=== PATIENT | female | born 1960 | race Caucasian/White ===

== ENCOUNTER 2019-09-21 15:11 | Outpatient (CLI) | payer MEDICAID, SELFPAY ==
--- NOTE | 2019-09-21 15:17 | XR_ITS ---
WS: [id number] ANKLE RIGHT TECHNIQUE: 3 views of the right ankle CLINICAL INFORMATION: ACUTE RIGHT ANKLE PAIN COMPARISON: None. FINDINGS: Osteopenia. Soft tissue edema. Normal ankle mortise. No acute fractures. Small plantar calcaneal spur . XR/XR ankle RT min 3V* [id number] IMPRESSION: Soft tissue edema with osteopenia. No visualized fractures.
== END 2019-09-21 15:12 | disposition home or self-care (01) ==
LOC: RAD 15:14
PROVIDERS: Family Provider Family Medicine; PCP Family Medicine; Visit Provider Registered Nurse
DX: M25.571 Pain in right ankle and joints of right foot (principal); R60.0 Localized edema; M85.871 Other specified disorders of bone density and structure, right ankle and foot
CPT/HCPCS: 73610

== ENCOUNTER → 2019-11-03 09:44 | Outpatient (BNVA) | payer MEDICAID, SELFPAY | PROVIDERS: Family Provider Family Medicine; PCP Family Medicine; Visit Provider Internal Medicine | DX: R19.5 Other fecal abnormalities (principal) | CPT/HCPCS: 87635 ==

== ENCOUNTER 2019-11-07 06:56 | Day surgery (SDC) | payer MEDICAID, SELFPAY ==
[2019-11-03 13:44] VITALS: BMI 30.7
[2019-11-07 07:39] VITALS: BP 122/57; RESP 18; TEMP 36.1; O2SAT 98
[2019-11-07] MEDS: sodium chloride 0.9% 1,000 ML 30 ML IV (07:41)
--- NOTE | 2019-11-07 07:50 | P.ANESASSM_ITS ---
Pre-Anesthetic Assessment Pre-Anesthetic Assessment: Height/Weight: Height 1.61 m Weight 79.832 kg Temp Resp BP Pulse Ox 97 F L 18 122/57 98 11/07/19 07:39 11/07/19 07:39 11/07/19 07:39 11/07/19 07:39 Preop Diagnosis: Positive Cologuard Proposed Procedure: Operation Date: 11/07/19 08:30 Proposed Procedures p Colonoscopy 79631 R19.5(Not Applicable) - Mazin Vincent MD Familial anesthetic complications: NOne Was Beta Delmi taken within 24 hours: Yes Last intake: Intake Last Liquid Date 11/06/19 Last Liquid Time 20:00 Last Solid Date 11/05/19 Last Solid Time 17:00 Social: Social History: Tobacco and No alcohol Exam: Pre-Anes Outpt Exam: alert, oriented x 3 and regular rate & rhythm Additional Exam Findings (including area of procedure): coarse b/l breaths sound s Airway: Cervical ROM: WNL MP: 4 Dentition: Chipped Pulmonary: Pulmonary: COPD (did not take her breathing treatments this morning), Cough (dry chronic cough (years) - hasn't changed) and SOB Comments: no currently resp distress CV/HEM: CV/HEM: CAD and HTN GI: GI: GERD Metabolic: Metabolic: Hyperlipidemia Musc/skel: Musc/skel: Lower Back Pain and OA/DJD Anesthetic Plan: ASA status: 3 Anesthesia: MAC Risk of > 500 ml blood loss (7ml/kg in children): No Meds/Allergies Current Medications: Current Medications Generic Name Dose Route Start Last Admin Trade Name Freq PRN Reason Stop Dose Admin Sodium Chloride 1,000 mls @ 30 ml s/hr 11/07/19 07:30 11/07/19 07:41 Sodium Chloride 0.9% IV 30 mls/hr .Q24H UTE Administration PFSH Anesthesia PFSH: Medical History (System 11/06/19 @ 13:05 by Mounika Webster) Anxiety CAD (coronary artery disease) COPD (chronic obstructive pulmonary disease) Depression Hypertension Surgical History (System 11/06/19 @ 13:05 by Mounika Webster) H/O colonoscopy yrs ago H/O esophagogastroduodenoscopy H/O: hysterectomy History of back surgery Family History (System 11/06/19 @ 13:05 by Mounika Webster) Father CAD (coronary artery disease) Cancer mesothelioma Hypertension Mother Cancer lung Diabetes Hypertension Brother Cancer Daughter No problems noted. Family/Other Cancer neice leukemia Denies family history of Anesthesia complication Bleeding disorder Social History (System 11/06/19 @ 13:05 by Mounika Webster) Smoking and tobacco status: current every day smoker Alcohol intake: current Alcohol intake frequency: holidays/special occasions only Household members: spouse Marital status: Current occupational status: disabled History of recent travel: No Data Anesthesia Cardiac Studies: No Data to Display
[2019-11-07 08:05] VITALS: PULSE 61; RESP 18; O2SAT 98
[2019-11-07] MEDS: ipratropium 0.5 mg/2.5 mL Neb INHALATION (08:05)
--- NOTE | 2019-11-07 08:09 | W.PM.OPSUD ---
Surgery/Procedure H&P Update DATE OF PROCEDURE: November 07, 2019 DATE H&P PERFORMED: 10/20/19 H&P UPDATE INFORMATION: I have reviewed H&P completed within last 30 days, I have examined patient prior to procedure and No changes to prior documentation PREOP DIAGNOSIS: Positive Cologuard PLANNED PROCEDURE: Operation Date: 11/07/19 08:30 Proposed Procedures p Colonoscopy 49946 R19.5(Not Applicable) - Mazin Vincent MD
[2019-11-07 08:33] VITALS: BP 123/61; PULSE 45; RESP 16; TEMP 36.3; O2SAT 100
--- NOTE | 2019-11-07 08:36 | ANE.PACU2 ---
Inpatient post-anesthesia follow up: Airway intact: Yes Vital signs: Temperature 97 F Pulse Rate 61 Respiratory Rate 18 Blood Pressure 122/57 Pulse Oximetry 98 Oxygen Delivery Me thod Room Air Oxygen Flow Rate Fraction of Inspir ed Oxygen Hydration adequate: Yes Nausea and vomiting: No Mental status: Baseline
[2019-11-07 08:49] VITALS: BP 136/73; PULSE 56; RESP 16; O2SAT 100
== END 2019-11-07 08:55 | disposition home or self-care (01) ==
PROVIDERS: PCP Family Medicine; Visit Provider Surgery
PROC: 0DJD8ZZ Inspection of Lower Intestinal Tract, Via Natural or Artificial Opening Endoscopic (ICD-10-PCS; CPT 45378; principal; 2019-11-07 08:30)
DX: R19.5 Other fecal abnormalities (principal); K64.8 Other hemorrhoids; J44.9 Chronic obstructive pulmonary disease, unspecified; I10 Essential (primary) hypertension; I25.10 Atherosclerotic heart disease of native coronary artery without angina pectoris; E78.5 Hyperlipidemia, unspecified; M19.90 Unspecified osteoarthritis, unspecified site
CPT/HCPCS: 12345; 45378; 94640; J2704; J7030; J7611; J7644

== ENCOUNTER 2020-05-30 07:36 | Outpatient (CLI) | payer MEDICAID, SELFPAY ==
--- NOTE | 2020-05-30 07:42 | MM_ITS ---
WS: [id number] BILATERAL SCREENING DIGITAL MAMMOGRAM WITH CAD HISTORY: SCREENING COMPARISON: 12/08/2013 Bilateral CC and MLO views submitted. Computer aided detection analyzed. Breast composition: The breasts are heterogeneously dense, which may obscure small masses. No suspici ous masses, microcalcifications or architectural distortion. Asymmetry in the central mid LEFT breast measures 12 mm. This was present in 2013. There are now some very small coarse round calcifications present. There are additional scattered calcifications within each breast. MM/[place] [id number] IMPRESSION: BI-RADS: 2-Benign FOLLOW UP: 1 Year Follow-up
== END 2020-05-30 07:37 | disposition home or self-care (01) ==
LOC: RADSHAW 07:40
PROVIDERS: PCP Family Medicine; Visit Provider Family Medicine
DX: Z12.31 Encounter for screening mammogram for malignant neoplasm of breast (principal)
CPT/HCPCS: 77067